=== PATIENT | female | born 2000 | race American Indian/Alaskan Native ===

== ENCOUNTER 2021-05-29 01:18 | Emergency (ER) | payer SELFPAY ==
[2021-05-29 01:39] VITALS: BP 138/101
[2021-05-29] MEDS ORDERED: ONDANSETRON 4 MG ODT TAB PO ONE (06:34)
--- NOTE | 2021-05-29 06:36 | Emergency Department Report ---
Minor Respiratory - HPI Chief Complaint: Nausea/Vomiting/Diarrhea Stated Complaint: COVID+ N/V Time Seen by Provider: 05/29/21 06:32 Duration: 15 Minor Respiratory: Yes Rhinorrhea, Yes Able to Tolerate Fluids, Yes Cough, Yes Sick Contacts, No Sore Throat, No Fever Other History: 21-year-old morbid obese -[place] female presents to the emergency room reporting she is Covid positive tested on 05/13/2021 and retested positive on 05/27/2021. She presents to the emergency room complaining of nausea vomiting chills headache and weakness. Patient is unvaccinated for Covid. She last vomited yesterday. She denies any past medical history currently takes no meds on a daily basis and has no known drug allergies. ED Review of Systems ROS: Stated complaint: COVID+ N/V Other details as noted in HPI Comment: All other systems reviewed and negative ED Past Medical Hx - Past Medical History Hx Asthma: Yes - Medications Home Medications: Home Medications Medication Instructions Recorded Confirmed Last Taken Type Ondansetron [Zofran Odt] 4 mg PO Q8HR PRN #15 tab.rapdis 05/29/21 Unknown Rx Minor Respiratory Exam - Exam General: Vital signs noted. No distress. Alert and acting appropriately. HEENT: Yes Moist Mucous Membranes, No Pharyngeal Erythema, No Pharyngeal Exudates, No Rhinorrhea, No Conjuctival Injection, No Frontal Tenderness, No Maxillary Tenderness Ear: Neither TM Bulge, Neither TM Erythema, Neither EAC Pain, Neither EAC Discharge Neck: Yes Supple, No Adenopathy Lungs: Yes Good Air Exchange, No Wheezes, No Ronchi, No Stridor, No Cough, No Labored Respirations, No Retractions, No Use of Accessory Muscles, No Other Abnormal Lung Sounds Heart: Yes Regular, No Murmur Abdomen: Yes Normal Bowel Sounds, No Tenderness, No Peritoneal Signs Skin: No Rash, No Edema Neurologic: Alert and oriented, no deficits. Musculoskeletal: Unremarkable. ED Course Vital Signs 05/29/21 01:30 Temperature 98.9 F Pulse Rate 101 H Respiratory 19 Rate Blood Pressure 138/101 [Left] O2 Sat by Pulse 97 Oximetry - Reevaluation(s) Reevaluation #1: 05/29/21 07:17 Patient reports she feels much better after having Zofran. She is eating on ice and drinking apple juice with no vomiting. ED Medical Decision Making - Medical Decision Making 21-year-old morbid obese -[place] female presents to the emergency room reporting she is Covid positive tested on 05/13/2021 and retested positive on 05/27/2021. She presents to the emergency room complaining of nausea vomiting chills headache and weakness. Patient is unvaccinated for Covid. She last vomited yesterday. She denies any past medical history currently takes no meds on a daily basis and has no known drug allergies. Patient is given Zofran 4 mg ODT and a p.o. challenge started. Critical care attestation.: If time is entered above; I have spent that time in minutes in the direct care of this critically ill patient, excluding procedure time. ED Disposition Clinical Impression: SARS-CoV-2 positive, Nausea and vomiting Disposition: HOME / SELF CARE / HOMELESS Is pt being admited?: No Does the pt Need Aspirin: No Condition: Stable Instructions: COVID-19 Frequently Asked Questions, COVID-19: How to Protect Yourself and Others - CDC, Prevent the Spread of COVID-19 if You Are Sick - CDC, COVID-19 Additional Instructions: Your symptoms appear most consistent with a nonspecific viral syndrome. However, given this current pandemic, COVID-19 is in the differential of possibilities. I do recommend repeat outpatient Covid 19 testing. In the meantime, isolate/quarantine yourself and stay away from anyone who is elderly, immunocompromised or chronically ill. You can use ibuprofen every 6-8 hours and Tylenol every 4-8 hours, using the dosing on the back of the bottle, as needed for any fever or body aches. Return to the emergency department with any worsening of your symptoms, development of chest pain or shortness of breath, or with any acute distress. Take the Zofran as needed for the nausea and vomiting. Is very important to increase your fluid intake. Rest. Quarantine. Prescriptions: Ondansetron [Zofran Odt] 4 mg PO Q8HR PRN #15 tab.rapdis PRN Reason: Nausea And Vomiting Referrals: PRIMARY CARE, [Primary Care Provider] - 3-5 Days [facility] [Provider Group] - 3-5 Days Forms: Work/School Release Form(ED) Time of Disposition: 07:20
== END 2021-05-29 07:33 | disposition home or self-care (01) ==
LOC: ED 01:18
DX: U07.1 COVID-19 (principal); R11.2 Nausea with vomiting, unspecified
CPT/HCPCS: 99283; J3490; Q0162